=== PATIENT | female | born 1940 | race Caucasian/White ===

== ENCOUNTER 2024-03-09 13:18 | Emergency (ER) | payer MEDICARE, SELFPAY ==
[2024-03-09 13:22] VITALS: BP 143/77; PULSE 69; RESP 18; TEMP 36.5; O2SAT 94; BMI 40.1
--- NOTE | 2024-03-09 13:39 | CRLHL7_ITS ---
For Patients: As a result of the Cures Act, medical imaging exams and procedure reports are released immediately into your electronic medical record. You may view this report before your referring provider. If you have questions, please contact your health care provider. INDICATION: Lower abdominal pain. History of diverticulitis. TECHNIQUE: CT abdomen and pelvis acquired with 117 cc of Isovue 370 IV contrast. COMPARISON: None available. FINDINGS: Lower chest: Mild bibasilar scarring or atelectasis. No pleural or pericardial effusions. Liver: Unremarkable. Spleen: Unremarkable. Pancreas: Unremarkable. Gallbladder and bile ducts: Cholecystectomy. No ductal dilatation. Kidneys: Small right renal cyst. No urolithiasis or hydronephrosis. Adrenal glands: Unremarkable. GI tract: Moderate colonic diverticulosis with heterogeneous wall thickening and pericolonic stranding of sigmoid colon in the pelvis. Trace pelvic fluid. No discrete pericolonic fluid collection. No bowel obstruction. Normal appendix. No free intraperitoneal gas. Lymph nodes: No pathologic lymphadenopathy. Vascular structures: Atherosclerotic disease. No abdominal aortic aneurysm. Pelvic Organs: Unremarkable. Bones: No acute or suspicious osseous abnormality. Degenerative changes spine and pelvis. IMPRESSION: Acute sigmoid diverticulitis with trace pelvic free fluid. No evidence of perforation or abscess. Dictated by Candelario Rowley MD @ 03/09/2024 2:44:49 PM Please note that all CT scans at this facility use dose modulation, iterative reconstruction, and/or weight-based dosing when appropriate to reduce radiation dose to as low as reasonably achievable. Dictated by: Candelario Rowley MD @ 03/09/2024 14:45:04 (Electronically Signed)
--- NOTE | 2024-03-09 13:40 | ED.ABDPAIN ---
HPI - Abdominal Pain General Chief Complaint: Abdominal Pain Stated Complaint: Poss Diverticulitis-sent by UC, WBC high Time Seen by Provider: 03/09/24 13:20 History of Present Illness HPI narrative: This 83-year-old female comes in with her from urgent care where she did have a white count at around 18,000. She comes in there and is sent here because of lower abdominal pain that began last evening. She states she has had some discomfort for the past few months in her right lower quadrant but this became more constant and significant with intensity since last night. She reports increased pain when attempting to past will or urine. She does not report any blood in the toilet. She has not had any fevers. She does have a history of diverticulitis. Related Data Home Medications ?Medication ?Instructions ?Recorded ?Confirmed apixaban 5 mg tablet (Eliquis) 5 mg PO BID 03/09/24 03/09/24 celecoxib 200 mg capsule 200 mg PO DAILY 03/09/24 03/09/24 hydrochlorothiazide 50 mg tablet 50 mg PO DAILY 03/09/24 03/09/24 metoprolol succinate 50 mg 50 mg PO BID 03/09/24 03/09/24 tablet,extended release 24 hr omeprazole 20 mg capsule,delayed 20 mg PO 03/09/24 03/09/24 release ondansetron 4 mg disintegrating 4 mg PO Q8H PRN nausea/vomiting 03/09/24 03/09/24 tablet simvastatin 40 mg tablet 40 mg PO QPM 03/09/24 03/09/24 Previous Rx's ?Medication ?Instructions ?Recorded amoxicillin 875 mg-potassium 1 tab PO BID #14 tabs 03/09/24 clavulanate 125 mg tablet Allergies Allergy/AdvReac Type Severity Reaction Status Date / Time codeine Allergy Severe vomiting Verified 03/09/24 14:31 laxtex Allergy Severe hives Uncoded 03/09/24 14:31 Review of Systems Status of ROS Reports: 10 or more systems reviewed and unremarkable except as noted in History and below Narrative Constitutional: No fevers, no weight gain or loss. Eyes: No discharge. No vision changes. HENT: No congestion, no sore throat, no ear pain. Cardiovascular: No chest pain, no palpitations. Respiratory: No shortness of breath, no wheezes, no cough. Gastrointestinal: No vomiting, no diarrhea. Abdominal pain as described above. Genitourinary: No dysuria, no hematuria. Musculoskeletal: Normal range of motion. Skin: No rashes, no pruritis. Neurological: No dizziness, weakness, sensory change, speech change. Endo/Heme/Allergies: No bruising or bleeding. No polydipsia. Pysch: no suicidality, no anxiety, no insomnia. All other systems reviewed and are negative. [facility] Social History Smoking Status: Never smoker How often do you have a drink containing alcohol: 2-3 times a week AUDIT-C Alcohol total score: 3 Non-prescribed substance use: denies use Exam Narrative: Exam Narrative: Constitutional: Well-developed, well-nourished, no acute distress. HEENT: Normocephalic, atraumatic. Neck: Normal range of motion. Nontender. Supple. Heart: Regular. No murmurs. Normal rate. Intact distal pulses. Lungs: Clear to auscultation. No chest discomfort. No wheezes, rhonchi, or rales. Abdomen: Normal bowel sounds. Pain located across the lower abdomen. Rebound tenderness is present. Genitalia: Deferred. Back: No midline tenderness. Normal range of motion. Extremities: Normal range of motion. No injury. Skin: Intact. No rash. Warm. No erythema or pallor. Neurologic: No altered sensation. No weakness. Alert and oriented. Psychiatric: No suicidality. No anxiety or depression. No insomnia. Nursing notes and vitals signs are reviewed. Const: Vital Signs, click to edit/add: Vital Signs - 24 hr 03/09/24 13:22 Temperature 97.7 F Pulse Rate [Right Pulse Oximeter] 69 Respiratory Rate 18 Blood Pressure [Ri ght Upper Arm] 143/77 H Pulse Oximetry 94 Oxygen Delivery Me thod Room Air Course Vital Signs Vital signs: Initial Vital Signs Temperature 97.7 F 03/09/24 13:22 Temperature Source Temporal Artery Scan 03/09/24 13:22 Pulse Rate 69 03/09/24 13:22 Pulse Rhythm Regular 03/09/24 13:22 Pulse Strength 3+ Normal 03/09/24 13:22 Respiratory Rate 18 03/09/24 13:22 Blood Pressure 143/77 H 03/09/24 13:22 Blood Pressure Mean 99 03/09/24 13:22 Blood Pressure Position Sitting 03/09/24 13:22 Pulse Oximetry 94 03/09/24 13:22 Oxygen Delivery Method Room Air 03/09/24 13:22 Vital Signs Temperature 97.7 F 03/09/24 13:22 Pulse Rate 69 03/09/24 13:22 Respiratory Rate 18 03/09/24 13:22 Blood Pressure 143/77 H 03/09/24 13:22 Pulse Oximetry 94 03/09/24 13:22 Oxygen Delivery Method Room Air 03/09/24 13:22 Temperature 97.7 F 03/09/24 13:22 Pulse Rate 69 03/09/24 13:22 Respiratory Rate 18 03/09/24 13:22 Blood Pressure 143/77 H 03/09/24 13:22 Pulse Oximetry 94 03/09/24 13:22 Oxygen Delivery Method Room Air 03/09/24 13:22 MDM - Abdominal Pain MDM Narrative Medical decision making narrative: This patient comes in with abdominal pain as described above. She has a history of diverticulitis in this is suspicious for recurrent episode of that. An IV was established and CT imaging is obtained which does show evidence of uncomplicated sigmoid diverticulitis. There are no other notable findings on CT imaging. The patient has normal vital signs and states that she is taking Zofran and Celebrex for symptomatic relief. She did receive a prescription for Augmentin. I also recommended that she use a fiber additive in her diet regularly to normalize her stools. Imaging Data CT scan - abdomen: Radiologist's impression: Acute sigmoid diverticulitis with trace pelvic free fluid. No evidence of perforation or abscess. Discharge Plan Discharge Clinical Impression: Diverticulitis Additional Instructions: Take medication as prescribed. Also recommend using a fiber additives such as Metamucil, Citrucel, or Benefiber for ongoing management of your bowel function. Return if worsening. Prescriptions: New amoxicillin-pot clavulanate 875-125 mg tablet 1 tab PO BID Qty: 14 0RF No Action celecoxib 200 mg capsule 200 mg PO DAILY omeprazole 20 mg capsule,delayed release(DR/EC) 20 mg PO hydrochlorothiazide 50 mg tablet 50 mg PO DAILY metoprolol succinate 50 mg tablet extended release 24 hr 50 mg PO BID ondansetron 4 mg tablet,disintegrating 4 mg PO Q8H PRN (Reason: nausea/vomiting) simvastatin 40 mg tablet 40 mg PO QPM Eliquis 5 mg tablet 5 mg PO BID Follow Up/Referrals: Mray Martinez MD [Referring] - Stand Alone Forms: [employer] Info Instructions
== END 2024-03-09 15:45 | disposition home or self-care (01) ==
PROVIDERS: Emergency Provider Emergency Medicine Emergency Medical Services
DX: K57.30 Diverticulosis of large intestine without perforation or abscess without bleeding (principal)
CPT/HCPCS: 74177; 87086; 99284; Q9967

== ENCOUNTER 2024-03-27 08:20 | Inpatient (IN) | payer MEDICARE, SELFPAY ==
[2024-03-27 08:24] VITALS: BP 126/81; PULSE 80; RESP 18; TEMP 36.4; O2SAT 92; BMI 38.2
--- NOTE | 2024-03-27 08:45 | ED.GENADULT ---
HPI - General Adult General Date Seen: 03/27/24 Chief complaint: Abdominal Pain Stated complaint: Diverticulitis episode Time Seen by Provider: 03/27/24 08:45 History of Present Illness HPI narrative: 83 yo F presenting to the ER today for abdominal pain, low back pain, diarrhea concern for ongoing diverticulitis. She was in the ER on 03/09, about 2 and half weeks ago. She had lower abdominal pain. Also diarrhea soft stools. [place] Ur[place] [id number]. In the ER, she had CT scan showed uncomplicated diverticulitis. Put on Augmentin, 7 days. She completed a course of Augmentin. She was getting somewhat better with the overall decrease in pain but she has had ongoing diarrhea with loose, generally watery and sometimes semi formed stools. For the past a week or 2 she has had ongoing bouts of pain that happen every day or 2. The pain tends to be in her lower abdomen. Sometimes it goes through to her low back. She has had ongoing loose stools. She has had 1 about 1 stool in the past couple weeks that was mostly formed otherwise all soft and diarrheal. For the past couple of days she has had more severe bouts of pain. No fever or chills. No weakness. She has had multiple loose stools mostly yellow colored. No bloody or black stool. With ongoing pain she came back to the ER today. She is concerned that she either has ongoing diverticulitis or possibly C diff. She has had several episodes of diverticulitis in the past and they have all gotten better with antibiotics. She has never needed surgery for diverticulitis. Related Data Home Medications ?Medication ?Instructions ?Recorded ?Confirmed apixaban 5 mg tablet (Eliquis) 5 mg PO BID 03/09/24 03/09/24 celecoxib 200 mg capsule 200 mg PO DAILY 03/09/24 03/09/24 hydrochlorothiazide 50 mg tablet 50 mg PO DAILY 03/09/24 03/09/24 metoprolol succinate 50 mg 50 mg PO BID 03/09/24 03/09/24 tablet,extended release 24 hr omeprazole 20 mg capsule,delayed 20 mg PO 03/09/24 03/09/24 release ondansetron 4 mg disintegrating 4 mg PO Q8H PRN nausea/vomiting 03/09/24 03/09/24 tablet simvastatin 40 mg tablet 40 mg PO QPM 03/09/24 03/09/24 Previous Rx's ?Medication ?Instructions ?Recorded amoxicillin 875 mg-potassium 1 tab PO BID #14 tabs 03/09/24 clavulanate 125 mg tablet Allergies Allergy/AdvReac Type Severity Reaction Status Date / Time codeine Allergy Severe vomiting Verified 03/27/24 09:42 laxtex Allergy Severe hives Uncoded 03/27/24 09:42 [facility] Social History Smoking Status: Never smoker How often do you have a drink containing alcohol: 2-3 times a week AUDIT-C Alcohol total score: 3 Non-prescribed substance use: denies use Exam Narrative: Exam Narrative: Constitutional: Appears well-developed and well-nourished. Alert. Conversant. Non toxic. HENT: Head: Atraumatic. Nose: Nose normal. Mouth/Throat: Oral mucosa is clear and moist. no trismus. Eyes: Conjunctivae normal. EOM normal. Pupils equal, round, and reactive to light. No scleral icterus. Neck: Normal range of motion. Neck supple. No tracheal deviation present. Cardiovascular: Normal rate, regular rhythm. No gallop. No friction rub. No murmur heard. Symmetric radial artery pulses Pulmonary/Chest: Effort normal. No stridor. No respiratory distress. No wheezes. No rales. No rhonchi . Abdominal: Soft. Bowel sounds normal. No distension. No mass. Suprapubic and left lower quadrant tenderness. When I palpate her upper abdomen it triggers left lower quadrant pain. No rebound. Musculoskeletal: RUE: Normal range of motion. No tenderness. No deformity LUE: Normal range of motion. No tenderness. No deformity RLE: Normal range of motion. No edema. No tenderness. No deformity LLE: Normal range of motion. No edema. No tenderness. No deformity Neurological: Alert and oriented to person, place, and time. Normal strength. CN II-VII intact. No sensory deficit. GCS eye subscore is 4. GCS verbal subscore is 5. GCS motor subscore is 6. Normal coordination Skin: Skin is warm and dry. No rash noted. No pallor. Normal capillary refill. Psychiatric: Normal mood. Normal affect. Const: Vital Signs, click to edit/add: Vital Signs - 24 hr 12/02/24 08:24 Temperature 97.5 F L Pulse Rate [Pulse Oximeter] 80 Respiratory Rate 18 Blood Pressure [Ri ght Upper Arm] 126/81 Pulse Oximetry 92 Oxygen Delivery Me thod Room Air Course Vital Signs Vital signs: Initial Vital Signs Temperature 97.5 F L 03/27/24 08:24 Temperature Source Temporal Artery Scan 03/27/24 08:24 Pulse Rate 80 03/27/24 08:24 Respiratory Rate 18 03/27/24 08:24 Blood Pressure 126/81 03/27/24 08:24 Blood Pressure Mean 96 03/27/24 08:24 Blood Pressure Position Sitting 03/27/24 08:24 Pulse Oximetry 92 03/27/24 08:24 Oxygen Delivery Method Room Air 03/27/24 08:24 Vital Signs Temperature 97.5 F L 03/27/24 08:24 Pulse Rate 80 03/27/24 08:24 Respiratory Rate 18 03/27/24 08:24 Blood Pressure 126/81 03/27/24 08:24 Pulse Oximetry 92 03/27/24 08:24 Oxygen Delivery Method Room Air 03/27/24 08:24 Temperature 97.5 F L 03/27/24 08:24 Pulse Rate 80 03/27/24 08:24 Respiratory Rate 18 03/27/24 08:24 Blood Pressure 126/81 03/27/24 08:24 Pulse Oximetry 92 03/27/24 08:24 Oxygen Delivery Method Room Air 03/27/24 08:24 Medical Decision Making MDM Narrative Medical decision making narrative: Very pleasant 83-year-old female presenting to the ER today with her with concern for ongoing lower abdominal pain, low back pain as well as diarrhea. She has a recent bout of diverticulitis and has already been on a 7 day course of Augmentin. Differential here is broad including ongoing diverticulitis, development of diverticular complication such as abscess, perforation, fistula. Also consider C diff as a side effect of recent antibiotics as well as other causes for abdominal pain including colitis, ischemia, bowel obstruction, appendicitis, among others. Laboratory workup shows a white count of 15, down slightly from 18 on March 09. She is afebrile and otherwise hemodynamically stable. Venous lactic acid is normal. CT scan is obtained given tenderness and exam findings and does show evidence for ongoing diverticulitis with development of a 5 cm phlegmon. Per Radiology read there is no actual fluid collection or rim enhancing lesion to suggest an active abscess. At this point would not be amenable to IR drainage or need surgical drainage. Discussed with surgery, Dr. Hahn. She will consult on the patient and follow. But no need for emergency surgery. Reasonable to admit here in [place] for IV antibiotics. If this does turn into an abscess she may ultimately require transfer for higher drainage. Discussed with hospitalist, Dr. Dumont, who graciously agrees to admit. Started on IV Zosyn. Dose discussed with pharmacist and adjusted for renal function. Lab Data Labs: Lab Results 03/27/24 Range/Units 09:23 WBC 15.40 H (4.50-11.00) K/uL RBC 3.93 L (4.00-5.20) m/uL Hgb 11.9 L (12.0-16.0) gm/dL Hct 36.7 (33.0-51.0) % MCV 93 (80-100) fL MCH 30 (26-34) pg MCHC 32 (32-36) gm/dL RDW Coeff of Ramon 12.3 (11.5-15.5) % Plt Count 396 (140-440) K/uL Neut % (Auto) 82.1 H (42.0-72.0) % Lymph % (Auto) 7.7 L (20-44) % Candler % (Auto) 9.2 (0.0-11.0) % Eos % (Auto) 0.6 (0.0-7.0) % Baso % (Auto) 0.3 (0.0-3.0) % Neut # (Auto) 12.60 H (1.7-7.0) K/uL Lymph # (Auto) 1.20 (0.90-2.90) K/uL Candler # (Auto) 1.40 H (0.00-0.90) K/UL Eos # (Auto) 0.10 (0.00-0.50) K/uL Baso # (Auto) 0.00 (0.00-0.30) K/uL Abs Immat Gran (auto) 0.00 (0.00-0.30) K/uL Imm/Tot Granulo (auto) 0.1 % Sodium 140 (135-149) mmol/L Potassium 4.2 (3.6-5.1) mmol/L Chloride 105 (96-114) mmol/L Carbon Dioxide 26 (20-32) mmol/L Anion Gap 9 (7-15) mEq/L BUN 27 (7-30) mg/dL Creatinine 0.8 (0.5-1.5) mg/dL Estimated Creat Clear 32.53 Estimated GFR 72 ml/min Glucose 130 H (60-115) mg/dL Calcium 9.2 (8.4-10.6) mg/dL Lipase 263 (23-300) U/L Imaging Data CT scan - abdomen: Attestation: I have reviewed the pertinent imaging results. Radiologist's impression: Bowel: Large complex multilocular duodenal diverticulum without inflammation. No dilated or inflamed small bowel. Normal appendix. Moderate to heavy distal colonic diverticular burden. In the mesentery just above the distal sigmoid colon there is a partially rim enhancing area of edema and fluid the measures 4.1 x 5.0 x 4.3 cm (AP by transverse by cc). No well-defined or percutaneously drainable collection.. Mild stool burden. Lymph nodes: Mildly prominent lymph nodes immediately adjacent to the phlegmon in the pelvis. Peritoneum: No ascites. Abdominal wall: Asymmetry in the included breast tissue. No hernia. Bones: No fractures. No focal worrisome bone lesions. IMPRESSION: 1. There is a 5 centimeter peridiverticular phlegmon in the pelvis. No rim enhancing percutaneously drainable abscess or collection. 2. Asymmetry of the breast tissue included within the field of view. Correlate with age-appropriate mammography / breast imaging. Discharge Plan Discharge Clinical Impression: Diverticulitis, Phlegmon Prescriptions: No Action celecoxib 200 mg capsule 200 mg PO DAILY omeprazole 20 mg capsule,delayed release(DR/EC) 20 mg PO hydrochlorothiazide 50 mg tablet 50 mg PO DAILY metoprolol succinate 50 mg tablet extended release 24 hr 50 mg PO BID ondansetron 4 mg tablet,disintegrating 4 mg PO Q8H PRN (Reason: nausea/vomiting) simvastatin 40 mg tablet 40 mg PO QPM Eliquis 5 mg tablet 5 mg PO BID amoxicillin-pot clavulanate 875-125 mg tablet 1 tab PO BID Qty: 14 0RF Follow Up/Referrals: Mary Martinez MD [Referring] -
--- NOTE | 2024-03-27 09:04 | CRLHL7_ITS ---
For Patients: As a result of the Century Cures Act, medical imaging exams and procedure reports are released immediately into your electronic medical record. You may view this report before your referring provider. If you have questions, please contact your health care provider. INDICATION: Lower abdominal pain, diarrhea, recent diverticulitis and finished Augmentin. COMPARISON: 03/09/2024 TECHNIQUE: CT of the abdomen and pelvis with intravenous contrast. Multiplanar axial, coronal, and sagittal reformats were reconstructed. Contrast: 104 mL Isovue 370. FINDINGS: Lung bases: Mild atelectasis. Liver: Minimal focal fat along the falciform ligament. Gallbladder and bile ducts: Cholecystectomy. No bile duct dilation. Pancreas: Normal. Spleen: Normal. Adrenal glands: Normal. Kidneys: Normal parenchyma. Small right renal cyst. No solid renal mass. No calculi. No urinary tract dilation. Urinary bladder: Barely filled. Pelvis: No cyst or mass. Pelvic floor relaxation. Vessels: Atherosclerotic vascular calcifications. No aortic aneurysm. Mesenteric vessels are widely patent. Bowel: Large complex multilocular duodenal diverticulum without inflammation. No dilated or inflamed small bowel. Normal appendix. Moderate to heavy distal colonic diverticular burden. In the mesentery just above the distal sigmoid colon there is a partially rim enhancing area of edema and fluid the measures 4.1 x 5.0 x 4.3 cm (AP by transverse by cc). No well-defined or percutaneously drainable collection.. Mild stool burden. Lymph nodes: Mildly prominent lymph nodes immediately adjacent to the phlegmon in the pelvis. Peritoneum: No ascites. Abdominal wall: Asymmetry in the included breast tissue. No hernia. Bones: No fractures. No focal worrisome bone lesions. IMPRESSION: 1. There is a 5 centimeter peridiverticular phlegmon in the pelvis. No rim enhancing percutaneously drainable abscess or collection. 2. Asymmetry of the breast tissue included within the field of view. Correlate with age-appropriate mammography / breast imaging. Please note that all CT scans at this facility use dose modulation, iterative reconstruction, and/or weight-based dosing when appropriate to reduce radiation dose to as low as reasonably achievable. Dictated by Nereida Mendes MD @ 03/27/2024 10:02:11 AM (Electronically Signed)
[2024-03-27 09:32] LABS: Basophils Percent Auto 0.3 % (0.0-3.0); Eosinophils Percent Auto 0.6 % (0.0-7.0); Hematocrit* 36.7 % (33.0-51.0); Hemoglobin* 11.9 gm/dL (12.0-16.0); Immature Granulocytes Pct Auto 0.1 %; Lymphocytes Percent Auto 7.7 % (20-44); Mean Corpuscular HGB Conc 32 gm/dL (32-36); Mean Corpuscular Hemoglobin 30 pg (26-34); Mean Corpuscular Volume 93 fL (80-100); Monocytes Percent Auto 9.2 % (0.0-11.0); Neutrophils Percent Auto 82.1 % (42.0-72.0); Platelet Count* 396 K/uL (140-440); RDW Coefficient of Variation % 12.3 % (11.5-15.5); Red Blood Count* 3.93 m/uL (4.00-5.20)
[2024-03-27 09:33] LABS: Slide Review Reflex No
[2024-03-27 09:45] LABS: Chloride* 105 mmol/L (96-114)
[2024-03-27 09:46] LABS: Potassium* 4.2 mmol/L (3.6-5.1); Sodium* 140 mmol/L (135-149)
[2024-03-27 09:48] LABS: Creatinine* 0.8 mg/dL (0.5-1.5); Est. Creatinine Clearance* 32.53; Estimated Glomerular Filt Rate 72 ml/min
[2024-03-27 09:49] LABS: Anion Gap 9 mEq/L (7-15); Blood Urea Nitrogen* 27 mg/dL (7-30); Calcium* 9.2 mg/dL (8.4-10.6); Carbon Dioxide* 26 mmol/L (20-32); Glucose* 130 mg/dL (60-115); Lipase* 263 U/L (23-300)
[2024-03-27] MEDS: PIPERACILLIN/TAZOBACTAM 3.375 GM in 0.9 % SODIUM CHLORIDE Mini-bag 100 ML IVPB ×3 (11:00→22:27)
--- NOTE | 2024-03-27 11:31 | P.IMHP_ITS ---
Hospitalist- H&P: HPI History of Present Illness Date Seen: 03/27/24 Chief complaint: Diverticulitis episode Narrative: Lynn Clarke is a 83 year old female who presented to the emergency room today for persistent diarrhea in this setting of known recent diverticulitis flare. She was seen in the ER on 03/09 for abdominal pain and leukocytosis, CT consistent with diverticulitis. She was treated with a course of oral Augmentin with some improvement, but overall diarrhea persisted. Last night, she was up all night with multiple episodes of nonbloody diarrhea. She continues to have intermittent abdominal pain. + nausea, history of morning nausea chronically. ER course and findings: - WBC of 15.4 with PMN predominance - 5 cm peridiverticular phlegmon in the pelvis without drainable abscess Admitted for IV antibiotics and bowel rest given findings and history. Lynn has a known history of diverticulitis. History of perforation during colonoscopy around 2001. Since then, has had virtual colonoscopies; last one in 2021. PCP is Dr. Owens through the [facility] system. Histories updated below. Review of Systems Status of ROS: Reports: 10 or more systems reviewed and unremarkable except as noted in History and below PFSH PFS Medical History (Updated 03/27/24 @ 12:33 by Jennifer Dumont MD) Perforation of colon as colonoscopy complication ?K63.1 - Perforation of intestine (nontraumatic) (ICD-10) ?K91.71 - Accidental puncture and laceration of a digestive system organ or structure during a digestive system procedure (ICD-10) GERD (gastroesophageal reflux disease) ?K21.9 - Gastro-esophageal reflux disease without esophagitis (ICD-10) Breast cancer ?C50.919 - Malignant neoplasm of unspecified site of unspecified female breast (ICD-10) Osteopenia ?M85.80 - Other specified disorders of bone density and structure, unspecified site (ICD-10) Hyperlipidemia ?E78.5 - Hyperlipidemia, unspecified (ICD-10) Atrial fibrillation ?I48.91 - Unspecified atrial fibrillation (ICD-10) Surgical History (Updated 03/27/24 @ 12:28 by Jennifer Dumont MD) H/O mastectomy ?Z90.10 - Acquired absence of unspecified breast and nipple (ICD-10) History of knee replacement procedure of left knee ?Z96.652 - Presence of left artificial knee joint (ICD-10) History of knee replacement procedure of right knee ?Z96.651 - Presence of right artificial knee joint (ICD-10) History of cholecystectomy ?Z90.49 - Acquired absence of other specified parts of digestive tract (ICD- 10) S/P CAMMY-BSO (total abdominal hysterectomy and bilateral salpingo-oophorectomy) ?Z90.710 - Acquired absence of both cervix and uterus (ICD-10) ?Z90.722 - Acquired absence of ovaries, bilateral (ICD-10) ?Z90.79 - Acquired absence of other genital organ(s) (ICD-10) Social History (Updated 03/27/24 @ 12:26 by Jennifer Dumont MD) Narrative: Lives with Henry, adult children. Nonsmoker, rare/social ETOH. Retired from retail. Full Code. Smoking Status: Never smoker How often do you have a drink containing alcohol: 2-3 times a week AUDIT-C Alcohol total score: 3 Non-prescribed substance use: denies use Meds Home Medications and Allergies Home Medications ?Medication ?Instructions ?Recorded ?Confirmed ?Type apixaban 5 mg tablet (Eliquis) 5 mg PO BID 03/09/24 03/27/24 History celecoxib 200 mg capsule 200 mg PO DAILY 03/09/24 03/27/24 History hydrochlorothiazide 50 mg tablet 50 mg PO DAILY 03/09/24 03/27/24 History metoprolol succinate 50 mg 50 mg PO BID 03/09/24 03/27/24 History tablet,extended release 24 hr omeprazole 20 mg capsule,delayed 20 mg PO BID 03/09/24 03/27/24 History release simvastatin 40 mg tablet 40 mg PO QPM 03/09/24 03/27/24 History Allergies Allergy/AdvReac Type Severity Reaction Status Date / Time codeine Allergy Severe vomiting Verified 03/27/24 09:42 latex Allergy Intermediate Hives Verified 03/27/24 12:12 Exam Narrative: Exam Narrative: GEN: Alert and oriented, nontoxic and sitting comfortably in bedside chair HEENT: EOMIs bilaterally, no scleral icterus CV: RRR, No concerning murmurs R: LCTA bilaterally without concerning wheezing Ab: Soft without concerning distension, + tenderness to palpation of bilateral lower quadrants without rebound or guarding, hypoactive bowel sounds Ext: wwp, no concerning edema Skin: + age related changes, no concerning skin lesions or rashes Neuro: Nonfocal Psych: Appropriate Const: Vital Signs, click to edit/add: Vital Signs - 24 hr 03/27/24 08:24 Temperature 97.5 F L Pulse Rate [Pulse Oximeter] 80 Respiratory Rate 18 Blood Pressure [Ri ght Upper Arm] 126/81 Pulse Oximetry 92 Oxygen Delivery Me thod Room Air Hospitalist - H&P: Result Labs Labs: Short CBC 03/27/24 Range/Units 09:23 WBC 15.40 H (4.50-11.00) K/uL Hgb 11.9 L (12.0-16.0) gm/dL Hct 36.7 (33.0-51.0) % Plt Count 396 (140-440) K/uL BMP 03/27/24 09:23 Sodium 140 Potassium 4.2 Chloride 105 Carbon Dioxide 26 BUN 27 Creatinine 0.8 Glucose 130 H Calcium 9.2 Assessment and Plan Assessment and plan (1) Diverticulitis: Problem comment: - with phlegmon as complication - IV Zosyn (03/27), will continue - clear liquid diet, advance as tolerated Status: Acute (2) Phlegmon: Status: Acute (3) Atrial fibrillation: Problem comment: - episode of this in the past, currently in sinus rhythm - continue metoprolol and Eliquis Status: Acute Plan - per above - home when tolerating po intake - updated at bedside, questions answered
--- NOTE | 2024-03-27 12:27 | P.GSCN_ITS ---
History of Present Illness Consult details Consult date: 03/27/24 [facility] Medical History (Updated 03/27/24 @ 12:28 by Jennifer Dumont MD) Perforation of colon as colonoscopy complication ?K63.1 - Perforation of intestine (nontraumatic) (ICD-10) ?K91.71 - Accidental puncture and laceration of a digestive system organ or structure during a digestive system procedure (ICD-10) GERD (gastroesophageal reflux disease) ?K21.9 - Gastro-esophageal reflux disease without esophagitis (ICD-10) Breast cancer ?C50.919 - Malignant neoplasm of unspecified site of unspecified female breast (ICD-10) Osteopenia ?M85.80 - Other specified disorders of bone density and structure, unspecified site (ICD-10) Hyperlipidemia ?E78.5 - Hyperlipidemia, unspecified (ICD-10) Atrial fibrillation ?I48.91 - Unspecified atrial fibrillation (ICD-10) Surgical History (Updated 03/27/24 @ 12:28 by Jennifer Dumont MD) H/O mastectomy ?Z90.10 - Acquired absence of unspecified breast and nipple (ICD-10) History of knee replacement procedure of left knee ?Z96.652 - Presence of left artificial knee joint (ICD-10) History of knee replacement procedure of right knee ?Z96.651 - Presence of right artificial knee joint (ICD-10) History of cholecystectomy ?Z90.49 - Acquired absence of other specified parts of digestive tract (ICD- 10) S/P CAMMY-BSO (total abdominal hysterectomy and bilateral salpingo-oophorectomy) ?Z90.710 - Acquired absence of both cervix and uterus (ICD-10) ?Z90.722 - Acquired absence of ovaries, bilateral (ICD-10) ?Z90.79 - Acquired absence of other genital organ(s) (ICD-10) Social History (Updated 03/27/24 @ 12:26 by Jennifer Dumont MD) Narrative: Lives with Henry, adult children. Nonsmoker, rare/social ETOH. Retired from retail. Full Code. Smoking Status: Never smoker How often do you have a drink containing alcohol: 2-3 times a week AUDIT-C Alcohol total score: 3 Non-prescribed substance use: denies use Meds Home Medications and Allergies Home Medications ?Medication ?Instructions ?Recorded ?Confirmed ?Type apixaban 5 mg tablet (Eliquis) 5 mg PO BID 03/09/24 03/27/24 History celecoxib 200 mg capsule 200 mg PO DAILY 03/09/24 03/27/24 History hydrochlorothiazide 50 mg tablet 50 mg PO DAILY 03/09/24 03/27/24 History metoprolol succinate 50 mg 50 mg PO BID 03/09/24 03/27/24 History tablet,extended release 24 hr omeprazole 20 mg capsule,delayed 20 mg PO BID 03/09/24 03/27/24 History release simvastatin 40 mg tablet 40 mg PO QPM 03/09/24 03/27/24 History Allergies Allergy/AdvReac Type Severity Reaction Status Date / Time codeine Allergy Severe vomiting Verified 03/27/24 09:42 latex Allergy Intermediate Hives Verified 03/27/24 12:12 Exam Const: Vital Signs, click to edit/add: Vital Signs - 24 hr 03/27/24 08:24 Temperature 97.5 F L Pulse Rate [Pulse Oximeter] 80 Respiratory Rate 18 Blood Pressure [Ri ght Upper Arm] 126/81 Pulse Oximetry 92 Oxygen Delivery Me thod Room Air Results Labs Labs: Abnormal lab results 03/27/24 Range/Units 09:23 WBC 15.40 H (4.50-11.00) K/uL RBC 3.93 L (4.00-5.20) m/uL Hgb 11.9 L (12.0-16.0) gm/dL Neut % (Auto) 82.1 H (42.0-72.0) % Lymph % (Auto) 7.7 L (20-44) % Neut # (Auto) 12.60 H (1.7-7.0) K/uL [place] # (Auto) 1.40 H (0.00-0.90) K/UL Glucose 130 H (60-115) mg/dL Diabetes panel 03/27/24 Range/Units 09:23 Sodium 140 (135-149) mmol/L Potassium 4.2 (3.6-5.1) mmol/L Chloride 105 (96-114) mmol/L Carbon Dioxide 26 (20-32) mmol/L BUN 27 (7-30) mg/dL Creatinine 0.8 (0.5-1.5) mg/dL Glucose 130 H (60-115) mg/dL Calcium 9.2 (8.4-10.6) mg/dL Calcium panel 03/27/24 Range/Units 09:23 Calcium 9.2 (8.4-10.6) mg/dL Pituitary panel 03/27/24 Range/Units 09:23 Sodium 140 (135-149) mmol/L Potassium 4.2 (3.6-5.1) mmol/L Chloride 105 (96-114) mmol/L Carbon Dioxide 26 (20-32) mmol/L BUN 27 (7-30) mg/dL Creatinine 0.8 (0.5-1.5) mg/dL Glucose 130 H (60-115) mg/dL Calcium 9.2 (8.4-10.6) mg/dL Adrenal panel 03/27/24 Range/Units 09:23 Sodium 140 (135-149) mmol/L Potassium 4.2 (3.6-5.1) mmol/L Chloride 105 (96-114) mmol/L Carbon Dioxide 26 (20-32) mmol/L BUN 27 (7-30) mg/dL Creatinine 0.8 (0.5-1.5) mg/dL Glucose 130 H (60-115) mg/dL Calcium 9.2 (8.4-10.6) mg/dL All other labs normal. Imaging Abdomen CT scan report/results: report reviewed and image reviewed Additional studies: CT scan of the abdomen pelvis 03/09/2024: IMPRESSION: Acute sigmoid diverticulitis with trace pelvic free fluid. No evidence of perforation or abscess. Dictated by Candelario Rowley MD @ 03/09/2024 2:44:[address] scan of the abdomen pelvis done today: IMPRESSION: 1. There is a 5 centimeter peridiverticular phlegmon in the pelvis. No rim enhancing percutaneously drainable abscess or collection. 2. Asymmetry of the breast tissue included within the field of view. Correlate with age-appropriate mammography / breast imaging. Dictated by Nereida Mendes MD @ 03/27/2024 10:02:11 AM
[2024-03-27] MEDS: 0.9 % SODIUM CHLORIDE 1000 ml 1,000 ML 75 ML IV (13:15)
[2024-03-27] MEDS: ACETAMINOPHEN 325 MG TABLET 975 MG PO ×2 (13:17→19:43)
[2024-03-27 13:21] VITALS: BP 130/65; RESP 18; TEMP 36.7; O2SAT 97; BMI 37.6
[2024-03-27 15:00] VITALS: BP 142/95; RESP 18; TEMP 36.7; O2SAT 91
[2024-03-27] MEDS: SIMVASTATIN 40 MG TABLET PO (18:15)
[2024-03-27 19:47] VITALS: BP 137/75; RESP 18; TEMP 36.7; O2SAT 95
[2024-03-27] MEDS: METOPROLOL SUCCINATE (XL) 50 MG TAB PO (21:41)
[2024-03-27] MEDS: OMEPRAZOLE 20 MG CAPSULE DR PO (21:41)
[2024-03-27] MEDS: APIXABAN 5 MG TABLET PO (21:41)
[2024-03-27] MEDS: SODIUM CHLORIDE 0.9 % (FLUSH) 10 ML SYRINGE 5 ML IVF ×2 (21:42→22:29)
[2024-03-27 22:32] VITALS: BP 127/81; RESP 18; TEMP 36.6; O2SAT 93
[2024-03-27 23:00] VITALS: RESP 18
[2024-03-28] VITALS (7 sets, daily range): BP systolic 97–140; BP diastolic 59–83; PULSE 68–75; RESP 16–18; TEMP 36.4–36.8; O2SAT 93–98
[2024-03-28] MEDS: ACETAMINOPHEN 325 MG TABLET 975 MG PO ×4 (01:54→21:12)
[2024-03-28 02:48] LABS: C.Difficile Negative (Negative); CDIFFEPI 027 PRESUMPTIVE NEGATIVE (Negative)
[2024-03-28] MEDS: PIPERACILLIN/TAZOBACTAM 3.375 GM in 0.9 % SODIUM CHLORIDE Mini-bag 100 ML IVPB ×4 (05:15→22:28)
[2024-03-28] MEDS: SODIUM CHLORIDE 0.9 % (FLUSH) 10 ML SYRINGE 5 ML IVF ×3 (05:15→21:13)
[2024-03-28 06:35] LABS: Basophils Percent Auto 0.4 % (0.0-3.0); Eosinophils Percent Auto 0.7 % (0.0-7.0); Hematocrit* 31.6 % (33.0-51.0); Hemoglobin* 10.4 gm/dL (12.0-16.0); Immature Granulocytes Pct Auto 0.1 %; Lymphocytes Percent Auto 10.3 % (20-44); Mean Corpuscular HGB Conc 33 gm/dL (32-36); Mean Corpuscular Hemoglobin 31 pg (26-34); Mean Corpuscular Volume 94 fL (80-100); Monocytes Percent Auto 9.9 % (0.0-11.0); Neutrophils Percent Auto 78.6 % (42.0-72.0); Platelet Count* 330 K/uL (140-440); RDW Coefficient of Variation % 12.2 % (11.5-15.5); Red Blood Count* 3.36 m/uL (4.00-5.20); White Blood Count* 13.55 K/uL (4.50-11.00)
--- NOTE | 2024-03-28 06:39 | PC.NURSE ---
End of shift note [id number]: Pt A&Ox4 and able to make needs known. She is independent with transferring/ambulation and continent of bowel & bladder. Stool sample sent to lab per orders- negative for C. diff. IV to Darren gutierrez and GOVIND. VSS- pt has been afebrile and on RA throughout the shift. Pt requested PRN Tylenol for 3/10 abdominal cramping x 2 this shift which was effective upon followup. Pt tolerating clear liquid diet- had full cup of chicken broth and 4 oz juice last evening. Pt has been denying nausea when asked. ?
[2024-03-28 06:48] LABS: Chloride* 108 mmol/L (96-114); Potassium* 3.5 mmol/L (3.6-5.1); Sodium* 139 mmol/L (135-149)
[2024-03-28 06:50] LABS: Est. Creatinine Clearance* 32.53; Estimated Glomerular Filt Rate 55 ml/min; Slide Review Reflex No
[2024-03-28 06:51] LABS: Anion Gap 7 mEq/L (7-15); Blood Urea Nitrogen* 23 mg/dL (7-30); Calcium* 8.4 mg/dL (8.4-10.6); Carbon Dioxide* 24 mmol/L (20-32); Glucose* 110 mg/dL (60-115); Magnesium* 1.2 mg/dL (1.5-2.6)
--- NOTE | 2024-03-28 08:04 | P.IMPN_ITS ---
Progress Note: A&P Assessment and plan (1) Diverticulitis: Problem details: - with phlegmon as complication. No abscess. Moderate to heavy distal colonic diverticular burden - continue IV Zosyn (03/27), WBC trending down - clear liquid diet, advance as tolerated Status: Acute (2) Phlegmon: Problem details: - CT shows a 5 centimeter peridiverticular phlegmon in the pelvis. No rim enhancing percutaneously drainable abscess or collection - currently on zosyn, likely transition to ertapenem at d/c to complete 10 day course. Will need PICC Status: Acute (3) Atrial fibrillation: Problem details: - episode of this in the past, currently in sinus rhythm - continue metoprolol and Eliquis Status: Acute (4) Breast cancer: Problem details: -L, approximately 2001, s/p mastectomy, chemo, radiation -incidental finding breast tissue asymmetry on CT 03/27/24. Has upcoming mammogram scheduled Status: Acute Time Spent With Patient Total time spent: Total time spent caring for the patient today was 45 minutes. This includes time spent for the visit reviewing the chart, time spent during the visit, time spent after the visit and documentation and planning in coordination of care. Subjective Date Seen: 03/28/24 Interval history: Patient is seen sitting up in a chair this morning. Reports feeling better than on admission. Abdominal pain is improved. Tolerating orals without nausea or vomiting. Has had a recurrence of loose stools. C Diff is negative. Remains afebrile. WBC trending down. Exam Narrative: Exam Narrative: PHYSICAL EXAM General: Pleasant, conversant, NAD HEENT: Normocephalic, atraumatic, sclera white, EOMI, oral mucosa moist Cardiovascular: RRR, S1S2. No pitting edema Pulmonary: CTA bilaterally without rhonchi, rales, expiratory wheezes. No dyspnea Abdominal: Soft, nondistended, tender lower abdomen, left side > right Neurological: Alert, answering questions appropriately, cranial nerves intact, no focal findings Extremities: No gross joint deformity or swelling. AROMI. Neurovascularly intact Skin: Warm, dry. Const: Vital Signs, click to edit/add: Vital Signs - 24 hr 03/27/24 08:24 03/27/24 13:21 03/27/24 13:21 Temperature 97.5 F L 98.0 F Pulse Rate [Pulse Oximeter] 80 Respiratory Rate 18 18 18 Blood Pressure [Ri ght Arm] 130/65 Blood Pressure [Ri ght Upper Arm] 126/81 Pulse Oximetry 92 97 97 Oxygen Delivery Me thod Room Air Room Air Room Air 03/27/24 15:00 03/27/24 15:00 03/27/24 19:47 Temperature 98.0 F 98.1 F Pulse Rate [Pulse Oximeter] Respiratory Rate 18 18 18 Blood Pressure [Ri ght Arm] 142/95 H 137/75 Blood Pressure [Ri ght Upper Arm] Pulse Oximetry 91 95 Oxygen Delivery Me thod Room Air Room Air 03/27/24 22:32 03/27/24 23:00 03/28/24 03:00 Temperature 97.8 F Pulse Rate [Pulse Oximeter] Respiratory Rate 18 18 16 Blood Pressure [Ri ght Arm] 127/81 Blood Pressure [Ri ght Upper Arm] Pulse Oximetry 93 Oxygen Delivery Me thod Room Air Labs Labs: Laboratory Results - last 24 hr 03/27/24 03/28/24 03/28/24 09:23 01:51 06:12 WBC 15.40 H 13.55 H RBC 3.93 L 3.36 L Hgb 11.9 L 10.4 L Hct 36.7 31.6 L MCV 93 94 MCH 30 31 MCHC 32 33 RDW Coeff of Ramon 12.3 12.2 Plt Count 396 330 Neut % (Auto) 82.1 H 78.6 H Lymph % (Auto) 7.7 L 10.3 L [place] % (Auto) 9.2 9.9 Eos % (Auto) 0.6 0.7 Baso % (Auto) 0.3 0.4 Neut # (Auto) 12.60 H 10.70 H Lymph # (Auto) 1.20 1.40 [place] # (Auto) 1.40 H 1.30 H Eos # (Auto) 0.10 0.10 Baso # (Auto) 0.00 0.10 Abs Immat Gran (auto) 0.00 0.00 Imm/Tot Granulo (auto) 0.1 0.1 Sodium 140 139 Potassium 4.2 3.5 L Chloride 105 108 Carbon Dioxide 26 24 Anion Gap 9 7 BUN 27 23 Creatinine 0.8 1.0 Estimated Creat Clear 32.53 32.53 Estimated GFR 72 55 Glucose 130 H 110 Calcium 9.2 8.4 Magnesium 1.2 L Lipase 263 Stl C. diff Tox B Gene Negative Stl C. diff [id number] PRESUMPTIVE NEGATIVE
[2024-03-28] MEDS: OMEPRAZOLE 20 MG CAPSULE DR PO ×2 (08:31→21:12)
[2024-03-28] MEDS: CELECOXIB 200 MG CAPSULE PO (08:31)
[2024-03-28] MEDS: MAGNESIUM IV 2 GM/50 ML PIGGYBACK IVPB (08:32)
[2024-03-28] MEDS: METOPROLOL SUCCINATE (XL) 50 MG TAB PO ×2 (08:32→21:12)
[2024-03-28] MEDS: APIXABAN 5 MG TABLET PO ×2 (08:32→21:12)
[2024-03-28] MEDS: SIMVASTATIN 40 MG TABLET PO (18:22)
[2024-03-29 03:00] VITALS: RESP 20
[2024-03-29] MEDS: ONDANSETRON 2 MG/ML inj 4 MG IVP (04:01)
[2024-03-29] MEDS: ACETAMINOPHEN 325 MG TABLET 975 MG PO (04:13)
[2024-03-29] MEDS: PIPERACILLIN/TAZOBACTAM 3.375 GM in 0.9 % SODIUM CHLORIDE Mini-bag 100 ML IVPB ×2 (04:15→11:45)
--- NOTE | 2024-03-29 06:34 | PC.NURSE ---
End of shift note [id number]: Pt alert & oriented x 4 and able to make needs known. Pt transfers and ambulates independently. PRN Zofran given for c/o nausea. She reports continued mild abdominal cramping and requests to take PRN Tylenol for this. Pt has been afebrile and on RA throughout the shift. Pt continent of bowel and bladder. Call light within reach. IV to R forearm patent and SL. Pt requested not to be woken for 0300 VS. Pt continues on clear liquid diet. She has had several small loose stools throughout the shift with po fluids encouraged.
[2024-03-29 07:00] VITALS: BP 115/61; PULSE 79; RESP 20; TEMP 36.5; O2SAT 94
[2024-03-29 07:32] LABS: Chloride* 108 mmol/L (96-114); Sodium* 139 mmol/L (135-149)
[2024-03-29 07:33] LABS: Basophils Percent Auto 0.5 % (0.0-3.0); Eosinophils Percent Auto 0.9 % (0.0-7.0); Hematocrit* 30.2 % (33.0-51.0); Hemoglobin* 9.9 gm/dL (12.0-16.0); Immature Granulocytes Pct Auto 0.1 %; Lymphocytes Percent Auto 8.7 % (20-44); Mean Corpuscular HGB Conc 33 gm/dL (32-36); Mean Corpuscular Hemoglobin 31 pg (26-34); Mean Corpuscular Volume 94 fL (80-100); Monocytes Percent Auto 10.1 % (0.0-11.0); Neutrophils Percent Auto 79.7 % (42.0-72.0); Platelet Count* 326 K/uL (140-440); Potassium* 3.5 mmol/L (3.6-5.1); RDW Coefficient of Variation % 12.3 % (11.5-15.5); White Blood Count* 12.92 K/uL (4.50-11.00)
[2024-03-29 07:35] LABS: Creatinine* 1.1 mg/dL (0.5-1.5); Est. Creatinine Clearance* 29.57; Estimated Glomerular Filt Rate 49 ml/min
[2024-03-29 07:36] LABS: Anion Gap 8 mEq/L (7-15); Blood Urea Nitrogen* 20 mg/dL (7-30); Calcium* 8.3 mg/dL (8.4-10.6); Carbon Dioxide* 23 mmol/L (20-32); Glucose* 100 mg/dL (60-115); Magnesium* 1.8 mg/dL (1.5-2.6)
[2024-03-29 07:47] LABS: Slide Review Reflex No
--- NOTE | 2024-03-29 11:21 | P.DS_ITS ---
DS: Providers Provider Date Seen: 03/29/24 Date of admission: 03/27/24 12:08 Primary care physician: Marianna Watkins MD Admitting Clinician: Jennifer Dumont MD Attending Physician on discharge: Yanely Mantilla, [facility], [facility] Date of Discharge: 03/29/24 DS: Diagnosis Discharge Diagnosis (1) Diverticulitis: Status: Acute Problem details: - with phlegmon as complication. No abscess. Moderate to heavy distal colonic diverticular burden - continue IV Zosyn (03/27), WBC trending down - clear liquid diet, advance as tolerated Clinically improving, pain 1-2, well managed with Tylenol. Has not utilized narcotics during hospital course. WBC downtrending while on IV antibiotics. Has remained afebrile. Intermittent loose stools. C difficile negative. Will restart Benefiber gummies when she returns home. Imodium p.r.n.. Will discharge to home with ongoing IV antibiotics, ertapenem for another 7 days for a full 10 day course of IV antibiotics. Will need close outpatient follow-up with PCP, repeat CBC and BMP. Tolerating slow advancement in diet. Encouraged bland, brat diet on discharge. (2) Phlegmon: Status: Acute Problem details: - CT shows a 5 centimeter peridiverticular phlegmon in the pelvis. No rim enha ncing percutaneously drainable abscess or collection - currently on zosyn, likely transition to ertapenem at d/c to complete 10 day course PICC line placed on 03/29/2024. Ertapenem 1 g Q 24 hours x7 days (in addition to 3 days of Zosyn for 10 total days of antibiotic therapy). Close outpatient follow-up with PCP. Consider outpatient General surgery consult if necessary. (3) Atrial fibrillation: Status: Acute Problem details: - episode of this in the past, currently in sinus rhythm - continue metoprolol and Eliquis (4) Breast cancer: Status: Acute Problem details: -L, approximately 2001, s/p mastectomy, chemo, radiation -incidental finding breast tissue asymmetry on CT 03/27/24. Has upcoming mammogram scheduled. Outpatient follow-up with PCP DS: Summary Hospital Course Hospital Course: [age] year old female was admitted to the medical floor for further management diverticulitis with phlegmon requiring IV antibiotics. Course of care and details as noted above. Discharge with ongoing IV antibiotics, PICC line placed on 03/29/2024. Close outpatient follow-up with PCP. Consideration for outpatient general surgery con sult if needed. Remainder of chronic medical comorbidities were monitored and managed with home medications. Status at Discharge Functional status at discharge: independent ambulation Overall status at discharge: patient is back to baseline Time Spent with Patient Time attestation: Total time spent providing and/or coordinating discharge services: Time spent: Greater than 30 minutes Exam Narrative: Exam Narrative: PHYSICAL EXAM General: Pleasant, conversant, NAD Cardiovascular: RRR Pulmonary: No dyspnea Neurological: Alert, answering questions appropriately Skin: Warm, dry. Const: Vital Signs, click to edit/add: Vital Signs - 24 hr 03/28/24 15:00 03/28/24 15:00 03/28/24 19:58 Temperature 98.0 F 97.6 F Pulse Rate [Pulse Oximeter] 71 71 72 Respiratory Rate 16 16 18 Blood Pressure [Ri ght Arm] 137/64 140/83 H Pulse Oximetry 98 95 Oxygen Delivery Me thod Room Air Room Air 03/28/24 22:32 03/28/24 23:00 03/29/24 03:00 Temperature 98.3 F Pulse Rate [Pulse Oximeter] 75 75 Respiratory Rate 18 18 20 Blood Pressure [Ri ght Arm] 97/64 Pulse Oximetry 95 Oxygen Delivery Me thod Room Air 03/29/24 07:00 Temperature 97.7 F Pulse Rate [Pulse Oximeter] 79 Respiratory Rate 20 Blood Pressure [Ri ght Arm] 115/61 Pulse Oximetry 94 Oxygen Delivery Me thod Room Air DS: Data Data Completed and Pending Labs on day of discharge: Labs from last 24 hours 03/29/24 06:50 WBC 12.92 H RBC 3.20 L Hgb 9.9 L Hct 30.2 L MCV 94 MCH 31 MCHC 33 RDW Coeff of Ramon 12.3 Plt Count 326 Neut % (Auto) 79.7 H Lymph % (Auto) 8.7 L [place] % (Auto) 10.1 Eos % (Auto) 0.9 Baso % (Auto) 0.5 Neut # (Auto) 10.30 H Lymph # (Auto) 1.10 [place] # (Auto) 1.30 H Eos # (Auto) 0.10 Baso # (Auto) 0.10 Abs Immat Gran (auto) 0.00 Imm/Tot Granulo (auto) 0.1 Sodium 139 Potassium 3.5 L Chloride 108 Carbon Dioxide 23 Anion Gap 8 BUN 20 Creatinine 1.1 Estimated Creat Clear 29.57 Estimated GFR 49 Glucose 100 Calcium 8.3 L Magnesium [address] scan - abdomen: Attestation: I have reviewed the pertinent imaging results. Radiologist's impression: Lung bases: Mild atelectasis. Liver: Minimal focal fat along the falciform ligament. Gallbladder and bile ducts: Cholecystectomy. No bile duct dilation. Pancreas: Normal. Spleen: Normal. Adrenal glands: Normal. Kidneys: Normal parenchyma. Small right renal cyst. No solid renal mass. No calculi. No urinary tract dilation. Urinary bladder: Barely filled. Pelvis: No cyst or mass. Pelvic floor relaxation. Vessels: Atherosclerotic vascular calcifications. No aortic aneurysm. Mesenteric vessels are widely patent. Bowel: Large complex multilocular duodenal diverticulum without inflammation. No dilated or inflamed small bowel. Normal appendix. Moderate to heavy distal colonic diverticular burden. In the mesentery just above the distal sigmoid colon there is a partially rim enhancing area of edema and fluid the measures 4.1 x 5.0 x 4.3 cm (AP by transverse by cc). No well-defined or percutaneously drainable collection.. Mild stool burden. Lymph nodes: Mildly prominent lymph nodes immediately adjacent to the phlegmon in the pelvis. Peritoneum: No ascites. Abdominal wall: Asymmetry in the included breast tissue. No hernia. Bones: No fractures. No focal worrisome bone lesions. IMPRESSION: 1. There is a 5 centimeter peridiverticular phlegmon in the pelvis. No rim enhancing percutaneously drainable abscess or collection. 2. Asymmetry of the breast tissue included within the field of view. Correlate with age-appropriate mammography / breast imaging. Discharge Plan Discharge Disposition: Home, Self-Care Date of Admission: 03/27/24 12:08 Attending Provider on Discharge: Yanely Mantilla Primary Care Provider: Marianna George Condition: Improved Anticipated Discharge Date/Time: 03/29/24 14:00 Discharge Medications: New loperamide 2 mg Capsule 2 mg PO QID PRNQty: 30 0RF ondansetron 4 mg tablet,disintegrating 4 mg PO Q8H PRN (Reason: nausea and vomiting) Qty: 10 0RF Continued celecoxib 200 mg capsule 200 mg PO DAILY omeprazole 20 mg capsule,delayed release(DR/EC) 20 mg PO BID hydrochlorothiazide 50 mg tablet 50 mg PO DAILY metoprolol succinate 50 mg tablet extended release 24 hr 50 mg PO BID simvastatin 40 mg tablet 40 mg PO QPM Eliquis 5 mg tablet 5 mg PO BID Discharge Orders: Discharge Order (Routine); Ordered 03/29/24 Ordered By: Yaenly Mantilla Patient Education: Loperamide (By mouth), Ondansetron (By mouth), Ertapenem (By injection), Diverticulitis (GEN) Additional Instructions: Continue Tylenol as needed for pain. Restart your benefiber gummmies. You may take Imodium as needed. Your C Difficle test was negative. Gamal EDEN diet. You will need outpatient IV antibiotics, Ertapenem once daily for 7 days (03/30- 04/05), for diverticulitis with a phlegmon. 03/30/24 - Report to [facility] at 1:30pm for first outpatient IV antibiotic therapy. You should follow up with your PCP in 3-5 days with recheck of you CBC and BMP. Activity Level: Activity as Tolerated Discharge Diet: Other Diet Detail: MEEK Yeung Follow Up Appointments: Marianna George MD [Primary Care Provider] - () Yomi Whitney MD [Referring] - 04/06/24 2:55 pm ([facility] for post hospital follow-up and have a recheck of CBC, BMP. Patient's primary care provider wasn't available. ) Forms: [employer] Info Instructions
[2024-03-29] MEDS: OMEPRAZOLE 20 MG CAPSULE DR PO (11:42)
[2024-03-29] MEDS: CELECOXIB 200 MG CAPSULE PO (11:42)
[2024-03-29] MEDS: LOPERAMIDE HCL 2 MG CAPSULE 4 MG PO (11:43)
[2024-03-29] MEDS: APIXABAN 5 MG TABLET PO (11:43)
[2024-03-29] MEDS: METOPROLOL SUCCINATE (XL) 50 MG TAB PO (11:44)
[2024-03-29] MEDS: SODIUM CHLORIDE 0.9 % (FLUSH) 10 ML SYRINGE 5 ML IVF (11:47)
[2024-03-29] MEDS: ERTAPENEM 1 GM in 0.9 % SODIUM CHLORIDE Mini-bag 100 ML IVPB (13:36)
--- NOTE | 2024-03-29 13:59 | PC.NURSE ---
shift note: pt up indept in room. vss stable. BS hyperactive x4. Pt tolerating clears and regular diet w/o increase in cramping or bloating. IV dc'd intact rt hand. Midline placed in rt upper bicept by picc stat. midline patent with saline flush and site c/d/i. Reviewed dc instructions and copies sent with pt at dc. Belongings reviewed and sent with pt at dc
== END 2024-03-29 14:12 | disposition home or self-care (01) | DRG 391 ==
LOC: ED 09:15 → MEDSURG 11:19
PROVIDERS: Family Medicine; Admitting Provider Family Medicine; Emergency Provider Emergency Medicine; PCP General Practice; Visit Provider Family Medicine
DX: K57.20 Diverticulitis of large intestine with perforation and abscess without bleeding (principal); K65.1 Peritoneal abscess; I48.91 Unspecified atrial fibrillation; Z79.01 Long term (current) use of anticoagulants; N64.89 Other specified disorders of breast; Z85.3 Personal history of malignant neoplasm of breast; K21.9 Gastro-esophageal reflux disease without esophagitis; M85.80 Other specified disorders of bone density and structure, unspecified site; E78.5 Hyperlipidemia, unspecified
CPT/HCPCS: 36410; 36415; 74177; 76937; 80048; 83690; 83735; 85025; 87493; 99284; 99285; A4221; A9270; C1751; J1335; J2405; J2543; J3475; J7030; Q9967

== ENCOUNTER 2024-04-05 13:30 | Outpatient (RCR) | payer MEDICARE, SELFPAY ==
[2024-03-30] MEDS: 0.9 % SODIUM CHLORIDE 500 ML IV (13:30)
[2024-03-30] MEDS: SODIUM CHLORIDE 0.9 % (FLUSH) 10 ML SYRINGE IVF ×2 (13:30→14:30)
[2024-03-30] MEDS: ERTAPENEM 1 GM in 0.9 % SODIUM CHLORIDE Mini-bag 100 ML IVPB (13:58)
[2024-03-31 13:40] VITALS: BP 117/67; PULSE 73; RESP 16; TEMP 36.1; O2SAT 94
[2024-03-31] MEDS: SODIUM CHLORIDE 0.9 % (FLUSH) 10 ML SYRINGE IVF ×2 (13:44→14:17)
[2024-03-31] MEDS: ERTAPENEM 1 GM in 0.9 % SODIUM CHLORIDE Mini-bag 100 ML IVPB (13:44)
[2024-04-01] MEDS: ERTAPENEM 1 GM in 0.9 % SODIUM CHLORIDE Mini-bag 100 ML IVPB (12:54)
[2024-04-01 13:03] VITALS: BP 121/58; PULSE 70; RESP 18; TEMP 36.7; O2SAT 90
[2024-04-02] MEDS: ERTAPENEM 1 GM in 0.9 % SODIUM CHLORIDE Mini-bag 100 ML IVPB (12:59)
[2024-04-02] MEDS: SODIUM CHLORIDE 0.9 % (FLUSH) 10 ML SYRINGE IVF (13:03)
[2024-04-02 13:11] VITALS: BP 117/59; PULSE 74; RESP 16; TEMP 37.1; O2SAT 94
[2024-04-03] MEDS: SODIUM CHLORIDE 0.9 % (FLUSH) 10 ML SYRINGE IVF (13:43)
[2024-04-03] MEDS: ERTAPENEM 1 GM in 0.9 % SODIUM CHLORIDE Mini-bag 100 ML IVPB (13:45)
[2024-04-03 13:46] VITALS: BP 127/72; PULSE 71; RESP 18; TEMP 36.4; O2SAT 92
--- NOTE | 2024-04-03 16:38 | ONC.NURNOTE ---
Patient in clinic today for D5 of 7 of IV abx. While RN was flushing mid line to assess patient reports that she feels pressure and pain in her upper arm. RN unable to get blood return. Line flushes but does have some resistance. Patient also reports some tingling in her arm while flushing of line. RN spoke with team and it was decided that line is not ok to use. Peripheral IV started and mid line removed. Mid line intact at end of line. Pressure dressing placed on mid line site and advised patient to leave dressing on for 24 hours. Advised patient if site begins to bleed a saturate gauze she should be seen in ER. Patient verbalized understanding and agreeable to the plan.
[2024-04-04 13:18] VITALS: BP 111/67; PULSE 71; RESP 16; TEMP 35.9; O2SAT 93
[2024-04-04] MEDS: SODIUM CHLORIDE 0.9 % (FLUSH) 10 ML SYRINGE IVF ×2 (13:28→14:02)
[2024-04-04] MEDS: ERTAPENEM 1 GM in 0.9 % SODIUM CHLORIDE Mini-bag 100 ML IVPB (13:30)
[2024-04-05 13:30] VITALS: BP 107/70; PULSE 71; RESP 16; TEMP 36.4; O2SAT 90
[2024-04-05] MEDS: ERTAPENEM 1 GM in 0.9 % SODIUM CHLORIDE Mini-bag 100 ML IVPB (13:51)
[2024-04-05] MEDS: SODIUM CHLORIDE 0.9 % (FLUSH) 10 ML SYRINGE IVF ×2 (13:52→14:30)
== END 2024-09-26 23:59 | disposition home or self-care (01) ==
LOC: CCIC 13:30
PROVIDERS: PCP General Practice; Referring Provider General Practice; Visit Provider Clinical Nurse Specialist
DX: K57.20 Diverticulitis of large intestine with perforation and abscess without bleeding (principal)
CPT/HCPCS: 96365; G0463; J1335; J7030